=== PATIENT | female | born 1990 | race Caucasian/White ===

== ENCOUNTER 2022-01-06 09:28 | Emergency (ER) | payer OTHER ==
[~2022-01-06] VITALS: Ht 170.2 cm; Wt 72.6 kg
[2022-01-06] MEDS ORDERED: FLUOXETINE HCL10 MG PO (09:42)
[2022-01-06] MEDS ORDERED: NUVARING VAGIN1 EACH VG (09:44)
[2022-01-06] MEDS ORDERED: ZOVIRAX400 MG PO (10:10)
[2022-01-06] MEDS ORDERED: VAGINAL ITCH CR30 GM VAG (10:10)
== END 2022-01-06 12:22 | disposition home or self-care (01) ==
LOC: ER 09:28
DX: N39.0 Urinary tract infection, site not specified (principal); A60.00 Herpesviral infection of urogenital system, unspecified